=== PATIENT | male | born 1965 | race African-American/Black ===

== ENCOUNTER 2016-02-28 06:06 | Day surgery (SDC) | payer OTHER ==
[2016-02-27 12:48] VITALS: BMI 33.0
[2016-02-28 08:17] VITALS: TEMP 98.3
[2016-02-28] MEDS ORDERED: ONDANSETRON 4 MG/2 ML VIAL ONE (08:40)
[2016-02-28] MEDS ORDERED: METOCLOPRAMIDE HCL INJECTION 10 MG/2 ML VIAL ONE (09:08)
[2016-02-28 10:17] VITALS: BP 149/80; PULSE 61
== END 2016-02-28 10:29 | disposition home or self-care (01) ==
LOC: JASU-ENDO 06:06
PROVIDERS: ATTEND Internal Medicine Gastroenterology
PROC: 0DJD8ZZ Inspection of Lower Intestinal Tract, Via Natural or Artificial Opening Endoscopic (ICD-10-PCS; principal; 2016-02-28 07:30)
DX: Z12.11 Encounter for screening for malignant neoplasm of colon (principal)

== ENCOUNTER 2017-11-08 08:57 | Emergency (ER) | payer OTHER ==
[2017-11-08 09:14] VITALS: BP 130/83; PULSE 79; TEMP 98.3; BMI 56.9
--- NOTE | 2017-11-08 09:14 | PDOC ---
History of Present Illness - General Chief Complaint: Pain, Acute Stated Complaint: ARM PAIN - History of Present Illness Initial Comments: The patient is a 51M who presents from [facility] for evaluation of L neck, arm, and hand pain since 10/15/2017. The patient reports that the pain will start in his R, paraspinous neck, and radiates to his R suprascapular area, down towards his shoulder. He describes the pain as tight/aching pain, that is intermittent, made worse by movement and palpation and not alleviated by anything that he has tried thus far. He also describes a sharp/aching pain that starts in his R elbow and radiates towards his index finger. He endorses R index MCP pain with AROM and PROM as well as it being pain to touch. He denies fevers/chills, JAMES, changes in vision, N/V/C/D, chest pain, SOB, abdominal pain. Denies history of IVDU The patient states he was initially evaluated at [facility] in early Oct for the same pain, has plain films of his RUE which were reportedly normal and treated with toradol and tylenol with little relief. He was referred to his primary care, whom he saw today. He reports a history of cerebral aneurysm which was clipped in approx 2012 and his PCP is concerned that a new aneurysm may be the etiology of his symptoms so sent him to the ED for evaluation/CT. The patient has yet to have a neurology referral for the pain. Of note, he has active Prostate cancer. Recently left his Urologist at [facility] and is planning on establishing care at [facility]. The patient reports being staged at Stage II. 11/08/17 09:09 Past History - Past Medical History Allergies/Adverse Reactions: Allergies Allergy/AdvReac Type Severity Reaction Status Date / Time dapsone Allergy Verified 11/08/17 09:10 lisinopril Allergy Verified 11/08/17 09:10 rifabutin [Rifabutin] Allergy Verified 11/08/17 09:10 sulfamethoxazole Allergy Verified 11/08/17 09:10 [From Bactrim] Home Medications: Ambulatory Orders Blood Sugar Diagnostic [Glucose Test Strip] 1 each MC TID #100 strip 09/04/16 Peg 400/Hypromellose/Glycerin [Eye Drop Tears] 15 ml OP DAILY #1 drops 03/12/17 Hypromellose 0.5% Opth Soln [Artificial Tears] 1 drop AD DAILY #1 dropsbtl 03/15 Hydrochlorothiazide [Hctz -] 25 mg PO DAILY #30 tablet 05/24/17 Multivitamins [Multivit ([facility] Formulary)] 1 each PO DAILY #30 tab 05/24/17 Alcohol Antiseptic Pads [Alcohol Prep Pads] 1 each TP ASDIR #1 box 06/04/17 Miscellaneous Medical Supply [Lancets] 1 each TD ASDIR #1 box 06/04/17 Pen Needle, Diabetic [[place]] 1 each MC ASDIR #1 box 06/04/17 Aspirin Coated [Ecotrin -] 81 mg PO DAILY #30 tablet.ec 08/09/17 Elviteg/Cob/Emtri/Tenof Alafen [Genvoya Tablet] 1 each PO DAILY #30 tablet 08/09 Loratadine [Claritin -] 10 mg PO DAILY #30 tablet 08/09/17 Miscellaneous Medical Supply [Glucometer Test Strips #100] 1 strip TD ASDIR #1 box 08/09/17 Rosuvastatin [Crestor -] 10 mg PO DAILY #30 tablet 08/09/17 Dulaglutide [Trulicity] 1.5 mg SQ WEEKLY #1 pen.injctr 09/25/17 Atenolol [Tenormin -] 2 tab PO BID 11/08/17 Oxycodone HCl/Acetaminophen [Percocet 5-325 mg Tablet -] 1 tab PO TID PRN #12 tablet MDD 3 11/08/17 Anemia: No Asthma: No Cancer: Yes (Being followed for elevated PSA thus far no Rx) Cardiac Disorders: Yes (Cardiac ablation 2012) CVA: No COPD: No CHF: No Dementia: No Diabetes: No GI Disorders: No Disorders: No HTN: Yes Hypercholesterolemia: Yes Liver Disease: No Seizures: No - Surgical History Abdominal Surgery: No Appendectomy: Yes Cardiac Surgery: No Cholecystectomy: No Lung Surgery: No Neurologic Surgery: No (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 No weakness HEAD, EYES, EARS, NOSE AND THROAT: No change in vision. No ear pain or discharge. No sore throat CARDIOVASCULAR: No chest pain or shortness of breath RESPIRATORY: No cough, wheezing, or hemoptysis GASTROINTESTINAL: No nausea, vomiting, diarrhea or constipation GENITOURINARY: No dysuria, frequency, or change in urination MUSCULOSKELETAL: per HPI SKIN: No rash NEUROLOGIC: No headache, vertigo, loss of consciousness, or change in strength/ sensation ENDOCRINE: No increased thirst. No abnormal weight change HEMATOLOGIC/LYMPHATIC: No anemia, easy bleeding, or history of blood clots ALLERGIC/IMMUNOLOGIC: No hives or skin allergy 11/08/17 09:10 Is the patient limited Scottish proficient: No *Physical Exam - Physical Exam Comments: GENERAL: Awake, alert, and fully oriented, in no acute distress HEAD: No signs of trauma, normocephalic, atraumatic EYES: PERRL, EOMI, sclera anicteric, conjunctiva clear ENT: Hearing grossly normal, nares patent, oropharynx clear without exudates. Moist mucosa NECK: Normal ROM, supple, no lymphadenopathy; R paraspinous TTP LUNGS: No distress, speaks full sentences, clear to auscultation bilaterally HEART:Regular rate and rhythm, normal S1 and S2, no murmurs appreciated, peripheral pulses normal and equal bilaterally ABDOMEN: Soft, nontender, normoactive bowel sounds. No guarding, no rebound NEUROLOGICAL: Cranial nerves II through XII grossly intact. Normal speech, normal gait SKIN: Warm, Dry, normal turgor RUE: Inspection: Shoulder TTP over humeral head; Suprapinous TTP; reduced shoulder abduction and flexion 2/2 pain, no clicks/crepitus palpated; elbow w/o TTP, full AROM and PROM; R wrist w/o TTP and w/ full AROM/PROM; hand with normal ROM and w/o pain except index MCP. Index MCP TTP with mild TTP to passive flexion and reduced AROM 2/2 pain; No erythema or ecchymosis. No open wounds. Compartments soft and compressible, pain within proportion Sensation: sensation present to light touch m/r/u n; Patient reports mild parasthesia over volar and dorsal index finger Motor: intact AIN/PIN/Ulnar in hand; 5/5 Wrist flex/ext; 5/5 Elbow flex/ext; 4/ 5 Shoulder ABd,Flex 2/2 pain Vascular: 2+ radial pulse palpated, BCR all fingers <2 sec. LUE: Inspection: No erythema or ecchymosis. No tenderness, no obvious abnormalities, no open wounds. Compartments soft and compressible, pain within proportion, no pain to passive stretch Sensation: sensation present to light touch m/r/u n Motor: intact AIN/PIN/Ulnar in hand; 5/5 Wrist flex/ext; 5/5 Elbow flex/ext; 5/ 5 Shoulder ABd,Flex Vascular: 2+ radial pulse palpated, BCR all fingers <2 sec. BLE: Inspection: No erythema or ecchymosis. No tenderness, no obvious abnormalities, no open wounds. Compartments soft and compressible, pain within proportion, no pain to passive stretch Sensation: SPLT DP, SP, Tib, Sai, Saph Motor: 5/5 EHL, 5/5 FHL, 5/5 TA, 5/5GS, 5/5 Quad, 5/5 Ham Vascular: 2+ DP/PT, all toes BCR <2 sec 11/08/17 09:11 ED Treatment Course - LABORATORY CBC & Chemistry Diagram: 11/08/17 09:55 11/08/17 09:55 Medical Decision Making - Medical Decision Making The patient is a 51M who presents for evaluation of right shoulder/arm pain since 10/15/2017. ED Course CMP, CBC CTA head and neck R shoulder and hand XR Robaxin and Tylenol for pain Lytes wnl No leukocytosis Patient states pain is unchanged Flexeril for pain Patient reports pain is unchanged. Pain is bearable at rest but is still exacerbated by movement. Patient give Percocet PO once for pain Rx fro percocet until neuro/PCP f/u Plan for D/C Plan discussed with patient who verbalized understanding and is in agreement Dispo: Home 11/08/17 13:58 *DC/Admit/Observation/Transfer Diagnosis at time of Disposition: Right arm pain, Prostate CA, Radiculopathy of arm Right shoulder pain Qualifiers: Chronicity: unspecified Qualified Code(s): M25.511 - Pain in right shoulder Hypertension Qualifiers: Hypertension type: unspecified Qualified Code(s): I10 - Essential (primary) hypertension - Discharge Dispostion Disposition: HOME Condition at time of disposition: Stable Decision to Admit order: No - Prescriptions Prescriptions: Oxycodone HCl/Acetaminophen [Percocet 5-325 mg Tablet -] 1 tab PO TID PRN #12 tablet MDD 3 PRN Reason: Severe Pain - Referrals Referrals: Evens Thomas MD [Primary Care Provider] - Renny Galarza MD [Staff Physician] - - Patient Instructions Printed Discharge Instructions: DI for Cervical Radiculopathy, DI for Shoulder Pain Additional Instructions: You were seen in the Emergency Department today for Right shoulder/arm pain. You were evaluated and found to not have any current acute pathology. Please review the handouts provided at discharge. Please follow up with your primary care provider and schedule an appointment with a Neurologist (the referral information is in your discharge paperwork). Return to the Emergency Room if you develop fevers/chills, acute decreased sensation, decreased function of your arm, or any new/concerning symptoms. - Post Discharge Activity
--- NOTE | 2017-11-08 09:29 | PDOC ---
Attending Attestation - Resident Resident Name: ElliskarynaSpeedy - ED Attending Attestation I have performed the following: I have examined & evaluated the patient, The case was reviewed & discussed with the resident, I agree w/resident's findings & plan, Exceptions are as noted - HPI HPI: 11/08/17 09:40 51 yo M h/o HIV, DM, HTN, h/o aneurysm which was clipped, stage 2 prostate cancer (between urologists) who presents with 1 month of neck/right arm/ shoulder pain. Pt states he noted mild neck pain beginning more than 1 month ago. Pain has worsened significantly. He was seen at [facility] on 10/15 where x rays were performed and he was asked to follow up with PMD. He followed up today and was sent to the ER No fevers or chills No direct trauma No arm weakness No neck stiffness 11/08/17 09:46 - Physicial Exam PE: 11/08/17 09:54 GENERAL: The patient is in no acute distress, pt is tearful. HEAD: Normal EYES: PERRLA, EOMI, sclera anicteric, conjunctiva clear. NECK: Normal range of motion, supple, right paraspinal tenderness, no midline tenderness LUNGS: Breath sounds equal, clear HEART:Regular rate and rhythm, normal S1 and S2 without murmur ABDOMEN: Soft, nontender EXTREMITIES: Normal range of motion, no edema NEUROLOGICAL: Cranial nerves II through XII grossly intact. Normal speech. No focal neurological deficits. MUSCULOSKELETAL: no deformities, no midline tenderness, no muscle tenderness - Medical Decision Making 11/08/17 09:57 51 yo M presenting to the ER with a complaint of neck pain and arm pain DD: disc herniation, cervical radiculopathy, No neurological deficits to suggest carotid or vertebral aneurysm Pt does have prostate ca which is not being followed at this time, ?metastatic disease Pt sent by PMD for eval and treatment Will do basic labs CTA head and neck Analgesia Re assess 11/08/17 11:13 Laboratory Tests 11/08/17 11/08/17 09:55 09:55 WBC 5.9 Hgb 12.5 Hct 36.5 Plt Count 249 BUN 15 Creatinine 1.0 No aneurysm seen on CT Pt continues to have pain Will plan to discharge to home Follow up with Neuro Clinical Impression: cervical radiculopathy, initial presentation
[2017-11-08] MEDS ORDERED: METHOCARBAMOL 500 MG TABLET PO ONE (09:36)
[2017-11-08] MEDS ORDERED: ACETAMINOPHEN 325 MG TABLET (FP) PO ONE ×2 (09:36→10:00)
[2017-11-08] MEDS ORDERED: ACETAMINOPHEN 325 MG TABLET (FP) ONE (10:01)
[2017-11-08] MEDS ORDERED: METHOCARBAMOL 500 MG TABLET ONE (10:01)
[2017-11-08 10:29] LABS: HEMATOCRIT 36.5 % (35.4-49); HEMOGLOBIN 12.5 GM/dL (11.7-16.9); MCH 31.9 pg (25.7-33.7); MCHC 34.1 g/dl (32.0-35.9); MEAN CELL VOLUME 93.5 fl (80-96); PLATELET COUNT 249 K/MM3 (134-434); RDW 14.1 % (11.9-15.9); WHITE BLOOD COUNT 5.9 K/mm3 (4.0-10.0)
[2017-11-08 10:43] LABS: ALBUMIN 3.8 g/dl (3.4-5.0); ALK PHOS 47 U/L (45-117); ANION GAP 8 MMOL/L (8-16); BILIRUBIN,TOTAL 0.5 mg/dL (0.2-1); BLOOD UREA NITROGEN 15 mg/dL (7-18); CALCIUM 9.7 mg/dL (8.5-10.1); CHLORIDE 108 mmol/L (98-107); CO2 27 mmol/L (21-32); GLUCOSE,RANDOM 84 mg/dL (74-106); POTASSIUM 3.9 mmol/L (3.5-5.1); SGOT/AST 16 U/L (15-37); SGPT/ALT 20 U/L (13-61); SODIUM 143 mmol/L (136-145); TOT PROT 7.1 g/dl (6.4-8.2)
[2017-11-08] MEDS ORDERED: CYCLOBENZAPRINE HCL 10 MG TABLET (FP) PO ONE (13:18)
[2017-11-08] MEDS ORDERED: CYCLOBENZAPRINE HCL 10 MG TABLET (FP) ONE (13:20)
== END 2017-11-08 14:41 | disposition home or self-care (01) ==
LOC: JER 08:57
DX: M25.511 Pain in right shoulder (principal); I10 Essential (primary) hypertension; Z85.46 Personal history of malignant neoplasm of prostate; M54.12 Radiculopathy, cervical region; E78.00 Pure hypercholesterolemia, unspecified
CPT/HCPCS: 36415; 70496-TC; 70498-TC; 73030-TC-RT-FY; 73130-TC-RT-FY; 80053; 85027; 99282-25

== ENCOUNTER 2018-12-04 09:48 | Emergency (ER) | payer OTHER ==
[2018-12-04 10:07] VITALS: BMI 30.8
--- NOTE | 2018-12-04 11:32 | PDOC ---
History of Present Illness - General Chief Complaint: Blood Pressure Problem Stated Complaint: HYPOTENSION Time Seen by Provider: 12/04/18 10:41 History Source: Patient Exam Limitations: No Limitations - History of Present Illness Initial Comments: 12/04/18 11:26 HPI: 52yo M PMH HIV+, brain aneurysm, HTN sent in from [facility] for FTT hypotension workup. Patient has not eaten or drank in 2 weeks due to a neck / throat pain. He endorses pain from GERD/reflux symptoms. Reports being entirely NPO for a couple days. Currently states that he is hungry and feels better after someone gave him an antacid and he requests food. Endorses lightheadedness. Denies JAMES, visual changes, N, V, CP, SOB, Abdominal pain, constipation. Endorses soft, not watery, stools. All: per chart PMH: as above PSH: per chart Past History - Travel Traveled outside of the country in the last 30 days: No Close contact w/someone who was outside of country & ill: No - Past Medical History Allergies/Adverse Reactions: Allergies Allergy/AdvReac Type Severity Reaction Status Date / Time lisinopril Allergy Severe angioedema Verified 12/04/18 11:12 metformin Allergy Intermediate Rash Verified 12/04/18 11:12 dapsone Allergy Verified 12/04/18 11:12 rifabutin [Rifabutin] Allergy Verified 12/04/18 11:12 sulfamethoxazole Allergy Verified 12/04/18 11:12 [From Bactrim] Home Medications: Ambulatory Orders Blood Sugar Diagnostic [Glucose Test Strip] 1 each TID #100 strip 09/04/16 Hypromellose 0.5% Opth Soln [Artificial Tears] 1 drop AD DAILY #1 dropsbtl 03/15 Pen Needle, Diabetic [[place]] 1 each ASDIR #1 box 06/04/17 Dulaglutide [Trulicity] 1.5 mg SQ WEEKLY #1 pen.injctr 09/25/17 Tramadol HCl 1 tab PO BID PRN #14 tablet MDD 2 01/14/18 Acetaminophen [Tylenol -] 1,000 mg PO BID PRN #60 tablet 03/13/18 Blood Pressure Test Kit-Large [Blood Pressure Monitor] 1 each DAILY #1 kit Elviteg/Cob/Emtri/Tenof Alafen [Genvoya Tablet] 1 each PO DAILY #30 tablet 03/13 Gabapentin [Neurontin -] 300 mg PO HS #30 capsule 03/13/18 Miscellaneous Medical Supply [Glucometer Test Strips #100] 1 strip TD ASDIR #1 box 03/13/18 Miscellaneous Medical Supply [Lancets] 1 each TD ASDIR #1 box 03/13/18 Peg 400/Hypromellose/Glycerin [Eye Drop Tears] 15 ml OP DAILY #1 drops 03/13/18 Diaper,Brief,Adult, Disposable [Adult Brief] 1 each MC Q3H #180 each 04/15/18 Polyvinyl Alcohol [Liquitears] 15 ml OP DAILY #1 drops 05/06/18 Alcohol Antiseptic Pads [Alcohol Prep Pads] 1 each TP ASDIR #1 box 06/12/18 Amlodipine Besylate 5 mg PO DAILY #30 tablet 06/12/18 Atenolol [Tenormin -] 1 tab PO BID #60 tablet 06/12/18 Cholecalciferol (Vitamin D3) [Vitamin D] 2,000 unit PO DAILY #30 capsule Elviteg/Cob/Emtri/Tenof Alafen [Genvoya (Non-Formulary)] 1 each PO DAILY #30 tablet 06/12/18 Gabapentin [Neurontin] 300 mg PO HS PRN #30 capsule 06/12/18 Hydrochlorothiazide [Hctz -] 25 mg PO DAILY #30 tablet 06/12/18 Loratadine [Claritin -] 10 mg PO DAILY #30 tablet 06/12/18 Rosuvastatin [Crestor -] 10 mg PO DAILY #30 tablet 06/12/18 Aspirin Coated [Ecotrin -] 81 mg PO DAILY #30 tablet.ec 09/29/18 Multivitamins [Multivit ([facility] Formulary)] 1 each PO DAILY #30 tab 09/29/18 Esomeprazole Magnesium [Nexium 24Hr] 20 mg PO DAILY #14 capsule.dr 12/04/18 Famotidine [Pepcid -] 20 mg PO BID #14 tablet 12/04/18 Mag Hydrox/Aluminum Hyd/Simeth [Maalox Maximum Strength Susp] 30 ml PO BID #1 bottle 12/04/18 Anemia: No Asthma: No Cancer: Yes (starting radiation treatment for cancer ) Cardiac Disorders: Yes (Cardiac ablation [facility]2012) CVA: No COPD: No CHF: No Dementia: No Diabetes: Yes GI Disorders: No Disorders: No HTN: Yes Hypercholesterolemia: Yes Liver Disease: No Seizures: No - Surgical History Abdominal Surgery: No Appendectomy: Yes Cardiac Surgery: No Cholecystectomy: No Lung Surgery: No Neurologic Surgery: No (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 No: Recent change in vision, Nose Congestion, Mouth Pain, Dental Problems, Mouth Swelling Respiratory: No: Cough, Orthopnea, Shortness of Breath Cardiac (ROS): Yes: See HPI, Lightheadedness. No: Chest Pain, Irregular Heart Rate, Palpitations, Syncope, Chest Tightness ABD/GI: Yes: Poor Appetite, Poor Fluid Intake. No: Blood Streaked Bowels, Constipated, Diarrhea, Nausea, Rectal Bleeding, Vomiting, Tarry Stools : No: Burning, Dysuria, Discharge, Pain Musculoskeletal: No: Back Pain, Joint Pain, Joint Swelling, Muscle Pain, Muscle Weakness Integumentary: No: Bruising, Pruritus, Rash Neurological: No: Headache, Numbness, Tingling, Weakness Psychiatric: Yes: Change in Appetite (hungry). No: Stressors, Mood Swings Endocrine: No: Change in Weight Hematologic/Lymphatic: No: Anemia, Blood Clots, Easy Bleeding, Easy Bruising All Other Systems: Reviewed and Negative *Physical Exam - Vital Signs Last Vital Signs Temp Pulse Resp BP Pulse Ox 97.8 F 97 H 18 95/50 L 97 12/04/18 10:00 12/04/18 10:00 12/04/18 10:00 12/04/18 10:00 12/04/18 10:00 - Physical Exam Comments: 12/04/18 11:31 Vitals reviewed, notable for hypotension in a hypertensive baseline patient WDWN man, appears stated age, laying in bed listening to music Throat without erythema or exudate, MMM, EOMI, trachea midline, throat soft without lumps / bumps RRR, nl s1s2, no murmurs CTABL, normal WOB, no wheezes / rales / rhonchi Soft, nontender, nondistended WWP, no clubbing / cyanosis / edema, 2+ radial and PT Alert and oriented, CN grossly intact, MAEE ED Treatment Course - LABORATORY CBC & Chemistry Diagram: 12/04/18 11:51 12/04/18 11:51 Medical Decision Making - Medical Decision Making 12/04/18 11:30 52yo M PMH HIV+, brain aneurysm, HTN, sent in from [facility] for FTT hypotension workup. Vitals notable for hypotension. DDX: Esophagitis, Psychogenic anorexia, HIV related infection (no huber / thrush exudates noted on exam). -CBC, CMP, TSH, PT/INR -Lunch Tray 12/04/18 13:06 -Patient eating well, endorses good appetite here in the ED. Denies N/V with PO. 12/04/18 13:10 -Easily ambulates to rest room -Attending spoke with patient PCP who sent him in, agreeable to discharge with close followup Dispo: Home Discharge - Discharge Information Problems reviewed: Yes Clinical Impression/Diagnosis: Acid reflux Qualifiers: Esophagitis presence: esophagitis presence not specified Qualified Code(s): K21.9 - Gastro-esophageal reflux disease without esophagitis Condition: Improved Disposition: HOME - Admission No - Additional Discharge Information Prescriptions: Esomeprazole Magnesium [Nexium 24Hr] 20 mg PO DAILY #14 capsule. Famotidine [Pepcid -] 20 mg PO BID #14 tablet Mag Hydrox/Aluminum Hyd/Simeth [Maalox Maximum Strength Susp] 30 ml PO BID #1 bottle - Follow up/Referral Referrals: Evens Nettles MD [Staff Physician] - - Patient Discharge Instructions Patient Printed Discharge Instructions: DI for Gastroesophageal Reflux Disease (GERD), How to Monitor Your Blood Pressure at Home Additional Instructions: You were seen in the emergency department today for low blood pressure, likely due to dehydration in the setting of not eating for the last 2 weeks. Your symptoms improved in the emergency department. We have sent some medications to your pharmacy to assist with your reflux symptoms - these medications will help you eat and drink more comfortably. We have included a referral to see Dr. Nettles, a mobile paint specialist, who you have seen before for your reflux symptoms. Call today to make an appointment within 1 week. For your dehydration, we gave you a liter of fluids and your blood pressure improved. We spoke with Dr. Rudolph and in consultation with Dr. Swan, we recommend that you stop taking the amlodipine blood pressure medication. Dr. Swan also recommends that you take only one atenolol dose per day, instead of two. This way, you will only take atenolol 50mg per day. We believe these adjustments will help keep your blood pressure at a more normal level. Check your blood pressure at home once a day. Dr. Rudolph would like to see you in the office next December 09. Call today to make an appointment for follow-up. We are glad you feel better. Return to the emergency department if you experience any new, recurring, or concerning symptoms. - Post Discharge Activity
[2018-12-04] MEDS ORDERED: SODIUM CHLORIDE 0.9% 500 ML INFUS.BAG IV ONE (11:33)
[2018-12-04 12:04] LABS: BASO % 0.7 % (0-2.0); EOS % 10.7 % (0-4.5); HEMATOCRIT 38.5 % (35.4-49); HEMOGLOBIN 12.8 GM/dL (11.7-16.9); LYMPH % 42.1 % (8-40); MCH 29.8 pg (25.7-33.7); MCHC 33.1 g/dl (32.0-35.9); MEAN CELL VOLUME 89.8 fl (80-96); MONO % 12.3 % (3.8-10.2); NEUT % 34.2 % (42.8-82.8); PLATELET COUNT 308 K/MM3 (134-434); RBC 4.29 M/mm3 (4.00-5.60); RDW 13.4 % (11.9-15.9); WHITE BLOOD COUNT 3.6 K/mm3 (4.0-10.0)
[2018-12-04 12:14] LABS: INR 1.16 (0.83-1.09); PROTHROMBIN TIME (PATIENT) 13.7 SEC (9.7-13.0)
[2018-12-04 12:25] LABS: BILIRUBIN,TOTAL 0.3 mg/dL (0.2-1); BLOOD UREA NITROGEN 18.4 mg/dL (7-18); CALCIUM 9.6 mg/dL (8.5-10.1); CREATININE 1.5 mg/dL (0.55-1.3); POTASSIUM 3.4 mmol/L (3.5-5.1); TOT PROT 7.2 g/dl (6.4-8.2)
--- NOTE | 2018-12-04 13:33 | EKG ---
Test Reason : Blood Pressure : / mmHG Vent. Rate : 071 BPM Atrial Rate : 071 BPM P-R Int : 258 ms QRS Dur : 100 ms QT Int : 424 ms P-R-T Axes : 055 001 -15 degrees QTc Int : 460 ms SINUS RHYTHM WITH 1ST DEGREE A-V BLOCK OTHERWISE NORMAL ECG WHEN COMPARED WITH ECG OF 14-JAN-2018 10:24, NO SIGNIFICANT CHANGE WAS FOUND Confirmed by SURY VEGA, ROBY ([id number]) on 12/04/2018 1:33:01 PM Referred By: Confirmed By:ROBY GA MD
[2018-12-04 14:05] VITALS: BP 113/79; PULSE 84; TEMP 98
--- NOTE | 2018-12-04 18:29 | PDOC ---
Documentation entered by Simin White SCRIBE, acting as scribe for Carito Starr MD. Carito Starr MD: This documentation has been prepared by the Christopher leong Sammi, SCRIBE, under my direction and personally reviewed by me in its entirety. I confirm that the documentation accurately reflects all work, treatment, procedures, and medical decision making performed by me. Attending Attestation - Resident Resident Name: BobEvelio - ED Attending Attestation I have performed the following: I have examined & evaluated the patient, The case was reviewed & discussed with the resident, I agree w/resident's findings & plan, Exceptions are as noted - HPI HPI: 12/04/18 13:33 The patient is a 52 year old male hx HIV, brain aneurysm, HTN who was sent by [facility] to the emergency department for evaluation of low blood pressure. He states he has been experiencing reflux sxs for the past 2 weeks which has led to decreased oral intake. He is currently complaining of reflux and states after taking an antacid on his way to the ED his symptoms are beginning to resolve and he is currently hungry. He notes mild lightheadedness and loose ( not watery or bloody) stool yesterday, but currently denies. Patient was seen in Dr. Rudolph's office today and was found to be hypotensive prompting her to send him to the emergency department for evaluation. Patient admits he also has not been eating or drinking as he has been feeling depressed due to his chronic bilateral rotator cuff pain. He is currently receiving physical therapy. He denies any suicidal or homicidal ideation. He currently states that he feels hopeful that physical therapy will help him with his chronic bilateral shoulder pain. Denies chest pain or SOB. Denies headache, dizziness, focal weakness or numbness. Denies fever, chills, nausea, vomiting, and constipation. Denies dysuria, frequency, urgency and hematuria. Allergies: lisinopril, metformin, dapsone, rifabutin, sulfamethoxazole - Physicial Exam PE: 12/04/18 15:06 GENERAL: Awake, alert, and fully oriented, in no acute distress. Pleasant, well appearing. EYES: PERRLA, EOMI, sclera anicteric, conjunctiva clear ENT: Oropharynx clear without exudates. mildy dry MM. No thrush noted NECK: Normal ROM, supple, no lymphadenopathy, JVD, or masses LUNGS: Breath sounds equal, clear to auscultation bilaterally. No wheezes, and no crackles HEART: Regular rate and rhythm, normal S1 and S2, no murmurs, rubs or gallops ABDOMEN: Soft, nontender, normoactive bowel sounds. No guarding, no rebound. No masses EXTREMITIES: Normal range of motion, no edema. No cords, erythema, or tenderness NEUROLOGICAL: Normal speech, cranial nerves intact, 5/5 strength in all 4 extremities, normal sensation to light touch in all 4 extremities, normal cerebellar exam, normal gait, normal tone SKIN: Warm, Dry, normal turgor, no rashes or lesions noted. - Medical Decision Making 12/04/18 15:07 52-year-old male with a significant past medical history of HIV (per Dr. Rudolph CD4 in the 300s, compliant with HAART), GERD presents to the emergency department with decreased p.o. intake in the setting of reflux, and also feeling depressed. No acute indications for psychiatry as he denies SI/HI, AH/VH Initial blood pressure mildly decreased to the 90s/70s. Labs remarkable for creatinine to 1.5, up from 0.8 few months ago consistent with dehydration. Patient currently eating and tolerating a tray of food - blood pressure has increased to 113/79 after fluids He is feeling significantly better, his exam is within normal limits. Case discussed with Dr. 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 They have decided to stop his amlodipine and cut his atenolol dose from 50 mg twice daily to 50 mg once a day. These changes have been communicated to the patient who expresses understanding. He has also seen Dr. Nettles in the past for his reflux symptoms. We will refer as well and start the patient on a PPI and other antacid medications at this time. Patient tolerating p.o., and eagerly request discharge home. He is clinically well-appearing. He will follow-up with Dr. Rudolph next Saturday for repeat labs. I discussed the physical exam findings, ancillary test results and final diagnoses with the patient. I answered all of the patient's questions. The patient was satisfied with the care received and felt comfortable with the discharge plan and treatment plan. The patient will call their primary care physician within 24 hours to arrange follow-up and will return to the Emergency Department with any new, persistent or worsening symptoms. Heart Score/ECG Review #1 12/04/18 15:12 Twelve-lead EKG was performed and reviewed by me. Sinus, rate 71. Normal axis. No ST elevations. T wave inversions in 3 and aVF.
== END 2018-12-04 15:14 | disposition home or self-care (01) ==
LOC: JER 09:48
DX: I95.89 Other hypotension (principal); K21.9 Gastro-esophageal reflux disease without esophagitis; Z21 Asymptomatic human immunodeficiency virus [HIV] infection status; M25.512 Pain in left shoulder; M25.511 Pain in right shoulder; I10 Essential (primary) hypertension; E10.9 Type 1 diabetes mellitus without complications; Z79.4 Long term (current) use of insulin; E78.00 Pure hypercholesterolemia, unspecified; R62.7 Adult failure to thrive; Z88.2 Allergy status to sulfonamides; Z88.8 Allergy status to other drugs, medicaments and biological substances; Z79.01 Long term (current) use of anticoagulants
CPT/HCPCS: 36415; 80053; 84443; 85025; 85610; 93005; 93010; 99285-25